=== PATIENT | male | born 1940 | race Two or more races ===

== ENCOUNTER 2022-04-17 14:15 | Emergency (ER) | payer OTHER ==
[~2022-04-17] VITALS: Ht 160 cm; Wt 51.7 kg
[2022-04-17] MEDS ORDERED: GLUMETZA500 MG PO (14:53)
[2022-04-17] MEDS ORDERED: SIMVASTATIN5 MG PO (14:54)
[2022-04-17] MEDS ORDERED: LANTUS SOL100 UNIT/1 SQ (14:55)
[2022-04-17] MEDS ORDERED: TRULICITY0.75 MG/0. SQ (14:56)
== END 2022-04-17 18:04 | disposition home or self-care (01) ==
LOC: ER 14:15
DX: E86.0 Dehydration (principal); U07.1 COVID-19; E11.9 Type 2 diabetes mellitus without complications; Z79.4 Long term (current) use of insulin